=== PATIENT | female | born 1950 | race Caucasian/White ===

== ENCOUNTER 2018-05-22 09:57 | Emergency (ER) | payer OTHER ==
[~2018-05-22] VITALS: Ht 154.9 cm; Wt 53.5 kg
--- NOTE | ~2018-05-22 | EKG ---
[place], [place] ELECTROCARDIOGRAM REPORT NAME: SCOTTIE PICHARDO UNIT #: [id number] ROOM: DOCTOR: BG DRAFT REPORT BIRTHDATE: [birth year] [facility] Test Date: 2018-05-22 Test Time: 10:33:52 Pat Name: SCOTTIE PICHARDO Department: Room: Gender: F Radiological Technologist: Jaleesa Floyd : 1950 Requested By: LEIGHTON TODD Order Number: [id number] Reading MD: Ilya Quarles MD Measurements Intervals Mabel Rate: 65 P: 66 IN: 158 QRS: 44 QRSD: 98 T: 75 QT: 431 QTc: 449 Interpretive Statements Sinus rhythm Abnormal R-wave progression, early transition Left ventricular hypertrophy Probable inferior infarct, old Baseline wander in lead(s) III No previous ECG available for comparison Electronically Signed On 05-23-2018 10:59:44 PDT by Ilya Quarles MD CM:EKGRPT:ELECTROCARDIOGRAM REPORT [id number] LEIGHTON PEDERSON DRAFT REPORT LEIGHTON SCHAFER
[2018-05-22] MEDS ORDERED: LISINOPRIL20 MG PO (10:29)
[2018-05-22] MEDS ORDERED: BUSPIRONE HCL10 MG PO (10:33)
[2018-05-22] MEDS ORDERED: BISOPROLOL FM5 MG PO (10:33)
[2018-05-22 10:37] LABS: BASO # 0.1 10*3/uL (0.0-0.1); BASO % 0.5 % (0.0-1.0); EOS # 0.1 10*3/uL (0.0-0.4); EOS % 0.5 % (1.0-4.0); HEMATOCRIT 35.4 % (37.0-47.0); HEMOGLOBIN 11.6 g/dl (12.0-16.0); LYMPH # 1.1 10*3/uL (1.3-4.4); LYMPH % 8.9 % (27.0-41.0); MEAN CELL VOLUME 94.4 fl (81.0-99.0); MEAN CORPUSCULAR HGB 30.9 pg (27.0-31.0); MEAN CORPUSCULAR HGB CONC 32.8 g/dl (33.0-37.0); MEAN PLATELET VOLUME 8.3 fl (9.6-12.3); MONO # 0.8 10*3/uL (0.1-1.0); MONO % 6.7 % (3.0-9.0); NEUT # 10.1 10*3/uL (2.3-7.9); NEUT % 82.7 % (47.0-73.0); PLATELET COUNT AUTOMATED 451 10*3/uL (130-400); RED BLOOD COUNT 3.75 10*6/uL (4.10-5.10); WHITE BLOOD COUNT 12.2 10*3/uL (4.8-10.8)
[2018-05-22 10:55] LABS: ALKALINE PHOSPHATASE 107 U/L (45-117); BUN 13 mg/dl (7-24); CHLORIDE 102 mmol/L (98-107); CREATININE 0.57 mg/dL (0.55-1.02); POTASSIUM 4.5 mmol/L (3.5-5.1); SGOT/AST 18 IU/L (3-35); SGPT/ALT 27 U/L (12-78); SODIUM 137 mmol/L (136-145); TOTAL PROTEIN 6.7 gm/dL (6.4-8.2)
[2018-05-22] MEDS ORDERED: ASPIRIN CHEWABL81 MG PO (10:57)
[2018-05-22] MEDS ORDERED: HYDROCODONE-AC1 EAC1 PO (10:58)
[2018-05-22] MEDS ORDERED: CYMBALTA60 MG PO (10:59)
[2018-05-22] MEDS ORDERED: PAROXETINE20 MG PO (11:00)
[2018-05-22] MEDS ORDERED: GOOD NEIGHBOR650 MG PO (11:01)
[2018-05-22] MEDS ORDERED: APLISOL5 TUB UNIT IC (11:01)
[2018-05-22] MEDS ORDERED: CALCIUM + D3 E1 EACH PO (11:03)
[2018-05-22] MEDS ORDERED: ROPINIROLE HYDRO2 M2 PO (11:04)
[2018-05-22] MEDS ORDERED: DOCUSATE SODIU100 M2 PO (11:04)
[2018-05-22] MEDS ORDERED: TAB-A-VITE1 EACH PO (11:05)
[2018-05-22] MEDS ORDERED: PROSOURCE PLUS887 ML PO (11:06)
[2018-05-22] MEDS ORDERED: POTASSIUM CHLO20 ME3 PO (11:07)
[2018-05-22 11:50] LABS: BILIRUBIN NEGATIVE (NEGATIVE); BLOOD NEGATIVE (NEGATIVE); CLARITY CLEAR (CLEAR); COLOR YELLOW (YELLOW); GLUCOSE NEGATIVE (NEGATIVE); KETONE NEGATIVE (NEGATIVE); LEUKO ESTERASE NEGATIVE (NEGATIVE); NITRITE NEGATIVE (NEGATIVE); UROBILINOGEN 0.2 E.U./dl (0.2-1.0)
[2018-05-22 12:01] LABS: BACTERIA TRACE; MUCOUS TRACE
== END 2018-05-22 18:49 | disposition short-term general hospital (02) ==
LOC: ED 09:57
PROVIDERS: Physician Assistant
DX: T84.021A Dislocation of internal left hip prosthesis, initial encounter (principal); Z88.0 Allergy status to penicillin; Z88.8 Allergy status to other drugs, medicaments and biological substances; Z91.018 Allergy to other foods; Z96.642 Presence of left artificial hip joint; Z79.899 Other long term (current) drug therapy

== ENCOUNTER 2018-07-23 01:03 | Emergency (ER) | payer OTHER, MEDICAID ==
[~2018-07-23] VITALS: Ht 154.9 cm; Wt 54.4 kg
[~2018-07-23 01:03] MED LIST: APLISOL5 TUB UNIT IC; ASPIRIN CHEWABL81 MG PO; BISOPROLOL FM5 MG PO; BUSPIRONE HCL10 MG PO; CALCIUM + D3 E1 EACH PO; CYMBALTA60 MG PO; DOCUSATE SODIU100 M2 PO; GOOD NEIGHBOR650 MG PO; HYDROCODONE-AC1 EAC1 PO; LISINOPRIL20 MG PO; PAROXETINE20 MG PO; POTASSIUM CHLO20 ME3 PO; PROSOURCE PLUS887 ML PO; ROPINIROLE HYDRO2 M2 PO; TAB-A-VITE1 EACH PO
== END 2018-07-23 03:18 | disposition home or self-care (01) ==
LOC: ED 01:03
DX: R51 Headache (principal); M54.2 Cervicalgia; Z88.0 Allergy status to penicillin; Z91.018 Allergy to other foods; Z88.8 Allergy status to other drugs, medicaments and biological substances; Z79.899 Other long term (current) drug therapy; Z79.82 Long term (current) use of aspirin; W18.09XA Striking against other object with subsequent fall, initial encounter; Y93.89 Activity, other specified; Y92.129 Unspecified place in nursing home as the place of occurrence of the external cause; Y99.8 Other external cause status

== ENCOUNTER 2020-04-07 08:28 | Emergency (ER) | payer MEDICARE | END 2020-04-07 09:01 | disposition home or self-care (01) | LOC: ED 08:28 | DX: Z03.818 Encounter for observation for suspected exposure to other biological agents ruled out (principal); Z88.0 Allergy status to penicillin; Z88.8 Allergy status to other drugs, medicaments and biological substances; Z79.899 Other long term (current) drug therapy; Z79.82 Long term (current) use of aspirin ==

== ENCOUNTER 2020-07-26 00:05 | Emergency (ER) | payer MEDICARE ==
[~2020-07-26] VITALS: Ht 154.9 cm; Wt 58.1 kg
== END 2020-07-26 03:00 ==
LOC: ED 00:05
DX: S00.93XA Contusion of unspecified part of head, initial encounter (principal); F32.9 Major depressive disorder, single episode, unspecified; F41.9 Anxiety disorder, unspecified; I10 Essential (primary) hypertension; M19.90 Unspecified osteoarthritis, unspecified site; Z88.0 Allergy status to penicillin; Z88.5 Allergy status to narcotic agent; Z91.018 Allergy to other foods; Z88.8 Allergy status to other drugs, medicaments and biological substances; Z79.899 Other long term (current) drug therapy; Z79.82 Long term (current) use of aspirin; W19.XXXA Unspecified fall, initial encounter; Y93.89 Activity, other specified; Y92.89 Other specified places as the place of occurrence of the external cause; Y99.8 Other external cause status

== ENCOUNTER 2021-04-19 15:53 | Emergency (ER) | payer MEDICARE ==
[~2021-04-19] VITALS: Ht 154.9 cm; Wt 68.9 kg
== END 2021-04-19 18:07 ==
LOC: ED 15:53
DX: S01.01XA Laceration without foreign body of scalp, initial encounter (principal); Z79.899 Other long term (current) drug therapy; Z79.82 Long term (current) use of aspirin; Z88.0 Allergy status to penicillin; Z88.8 Allergy status to other drugs, medicaments and biological substances; W01.198A Fall on same level from slipping, tripping and stumbling with subsequent striking against other object, initial encounter; Y93.89 Activity, other specified; Y92.128 Other place in nursing home as the place of occurrence of the external cause; Y99.9 Unspecified external cause status

== ENCOUNTER 2021-08-05 05:31 | Emergency (ER) | payer MEDICARE ==
[~2021-08-05] VITALS: Ht 152.4 cm; Wt 49.9 kg
== END 2021-08-05 07:40 ==
LOC: ED 05:31
DX: S00.83XA Contusion of other part of head, initial encounter (principal); S80.212A Abrasion, left knee, initial encounter; Z88.0 Allergy status to penicillin; Z88.8 Allergy status to other drugs, medicaments and biological substances; Z79.899 Other long term (current) drug therapy; Z79.82 Long term (current) use of aspirin; W18.39XA Other fall on same level, initial encounter; Y93.89 Activity, other specified; Y92.89 Other specified places as the place of occurrence of the external cause; Y99.8 Other external cause status

== ENCOUNTER 2022-02-15 07:18 | Emergency (ER) | payer MEDICARE ==
[2022-02-15 07:43] LABS: BASO # 0.1 10*3/uL (0.0-0.1); BASO % 0.7 % (0.0-1.0); EOS # 0.2 10*3/uL (0.0-0.4); EOS % 2.1 % (1.0-4.0); HEMATOCRIT 42.4 % (37.0-47.0); LYMPH # 1.4 10*3/uL (1.3-4.4); LYMPH % 17.8 % (27.0-41.0); MEAN CELL VOLUME 91.8 fl (81.0-99.0); MEAN CORPUSCULAR HGB 29.9 pg (27.0-31.0); MEAN CORPUSCULAR HGB CONC 32.5 g/dl (33.0-37.0); MONO # 0.6 10*3/uL (0.1-1.0); MONO % 7.9 % (3.0-9.0); NEUT # 5.5 10*3/uL (2.3-7.9); NEUT % 70.8 % (47.0-73.0); PLATELET COUNT AUTOMATED 321 10*3/uL (130-400); RED BLOOD COUNT 4.62 10*6/uL (4.10-5.10); RED CELL DISTRI WIDTH 13.4 % (0-14.5); WHITE BLOOD COUNT 7.7 10*3/uL (4.8-10.8)
[2022-02-15 07:57] LABS: ACT PARTIAL THROMBO TIME 29.5 SECONDS (20.0-32.1)
[2022-02-15 07:58] LABS: BUN 22 mg/dl (7-24); CHLORIDE 107 mmol/L (98-107); CREATININE 0.57 mg/dL (0.55-1.02); POTASSIUM 4.7 mmol/L (3.5-5.1); SODIUM 138 mmol/L (136-145)
[2022-02-15 08:02] LABS: CPK 63 U/L (26-192)
== END 2022-02-15 09:30 | disposition home or self-care (01) ==
LOC: ED 07:18
PROVIDERS: Emergency Medicine
DX: S09.90XA Unspecified injury of head, initial encounter (principal); M25.552 Pain in left hip; M25.551 Pain in right hip; Z88.0 Allergy status to penicillin; Z88.8 Allergy status to other drugs, medicaments and biological substances; Z79.899 Other long term (current) drug therapy; Z79.82 Long term (current) use of aspirin; W18.39XA Other fall on same level, initial encounter; Y93.89 Activity, other specified; Y92.128 Other place in nursing home as the place of occurrence of the external cause; Y99.8 Other external cause status

== ENCOUNTER 2022-04-10 09:18 | Emergency (ER) | payer MEDICARE ==
[~2022-04-10] VITALS: Ht 154.9 cm; Wt 54.4 kg
[2022-04-10 10:32] LABS: BASO # 0.1 10*3/uL (0.0-0.1); BASO % 0.6 % (0.0-1.0); EOS # 0.2 10*3/uL (0.0-0.4); EOS % 1.9 % (1.0-4.0); HEMATOCRIT 40.5 % (37.0-47.0); LYMPH # 1.4 10*3/uL (1.3-4.4); LYMPH % 15.8 % (27.0-41.0); MEAN CORPUSCULAR HGB 30.7 pg (27.0-31.0); MEAN CORPUSCULAR HGB CONC 33.3 g/dl (33.0-37.0); MEAN PLATELET VOLUME 8.8 fl (9.6-12.3); MONO # 0.7 10*3/uL (0.1-1.0); MONO % 8.3 % (3.0-9.0); NEUT # 6.4 10*3/uL (2.3-7.9); NEUT % 73.1 % (47.0-73.0); PLATELET COUNT AUTOMATED 289 10*3/uL (130-400); RED CELL DISTRI WIDTH 13.1 % (0-14.5); WHITE BLOOD COUNT 8.7 10*3/uL (4.8-10.8)
[2022-04-10 10:47] LABS: ALKALINE PHOSPHATASE 72 U/L (45-117); BUN 20 mg/dl (7-24); CHLORIDE 106 mmol/L (98-107); CREATININE 0.55 mg/dL (0.55-1.02); POTASSIUM 4.6 mmol/L (3.5-5.1); SGOT/AST 17 IU/L (3-35); SGPT/ALT 26 U/L (12-78); SODIUM 137 mmol/L (136-145); TOTAL PROTEIN 6.4 gm/dL (6.4-8.2)
[2022-04-10 10:48] LABS: ACT PARTIAL THROMBO TIME 29.6 SECONDS (20.0-32.1)
== END 2022-04-10 13:01 ==
LOC: ED 09:18
PROVIDERS: Family Medicine
DX: S70.11XA Contusion of right thigh, initial encounter (principal); S00.03XA Contusion of scalp, initial encounter; Z88.0 Allergy status to penicillin; Z88.8 Allergy status to other drugs, medicaments and biological substances; Z91.018 Allergy to other foods; Z79.899 Other long term (current) drug therapy; Z79.82 Long term (current) use of aspirin; W18.39XA Other fall on same level, initial encounter; Y93.89 Activity, other specified; Y92.89 Other specified places as the place of occurrence of the external cause; Y99.8 Other external cause status

== ENCOUNTER → 2023-03-24 | Outpatient (CLI) | payer MEDICARE ==
[~2023-03-24] MED LIST changes: +APRESOLINE25 MG PO; +ASPERCREME LID113 G1 T; +FOSAMAX70 M1 PO; +NORVASC5 MG PO; +TENORMIN50 MG PO; +VOLTAREN ARTHRI20 GM T
== END | disposition home or self-care (01) ==
LOC: CARD 02:16
PROVIDERS: ATTEND Internal Medicine Cardiovascular Disease
DX: R94.39 Abnormal result of other cardiovascular function study (principal); I10 Essential (primary) hypertension; R00.2 Palpitations; I34.0 Nonrheumatic mitral (valve) insufficiency; R94.31 Abnormal electrocardiogram [ECG] [EKG]; R60.9 Edema, unspecified

== ENCOUNTER → 2024-02-21 | Outpatient (CLI) | payer MEDICARE ==
[~2024-02-21] MED LIST changes: +CIPRO500 MG PO
== END | disposition home or self-care (01) ==
LOC: ORTHO 01:59
PROVIDERS: ATTEND Orthopaedic Surgery
DX: M25.775 Osteophyte, left foot (principal)

== ENCOUNTER 2024-05-15 16:40 | Emergency (ER) | payer MEDICARE ==
[~2024-05-15] VITALS: Ht 144.7 cm; Wt 65.3 kg
[2024-05-15] MEDS ORDERED: Acetaminophen/Oxycodone 5 MG/325 MG TABLET PO ONE (16:50)
[2024-05-15 17:09] LABS: BASO # 0.1 10*3/uL (0.0-0.1); BASO % 0.4 % (0.0-1.0); EOS # 0.2 10*3/uL (0.0-0.4); EOS % 1.7 % (1.0-4.0); LYMPH # 2.2 10*3/uL (1.3-4.4); LYMPH % 18.7 % (27.0-41.0); MEAN CELL VOLUME 92.6 fl (81.0-99.0); MEAN CORPUSCULAR HGB CONC 32.4 g/dl (33.0-37.0); MEAN PLATELET VOLUME 8.5 fl (9.6-12.3); MONO # 1.1 10*3/uL (0.1-1.0); MONO % 9.9 % (3.0-9.0); PLATELET COUNT AUTOMATED 340 10*3/uL (130-400); RED BLOOD COUNT 4.86 10*6/uL (4.10-5.10); WHITE BLOOD COUNT 11.6 10*3/uL (4.8-10.8)
[2024-05-15 17:20] LABS: ACT PARTIAL THROMBO TIME 27.5 SECONDS (20.0-32.1)
[2024-05-15 17:28] LABS: BUN 19 mg/dl (9-23); CHLORIDE 105 mmol/L (98-107); POTASSIUM 3.6 mmol/L (3.4-5.1)
== END 2024-05-15 22:48 ==
LOC: ED 16:40
PROVIDERS: Internal Medicine
DX: R51.9 Headache, unspecified (principal); M25.552 Pain in left hip; M54.2 Cervicalgia; R10.2 Pelvic and perineal pain; F32.A Depression, unspecified; F41.9 Anxiety disorder, unspecified; I10 Essential (primary) hypertension; M19.90 Unspecified osteoarthritis, unspecified site; E78.5 Hyperlipidemia, unspecified; Z88.0 Allergy status to penicillin; Z88.8 Allergy status to other drugs, medicaments and biological substances; Z91.018 Allergy to other foods; Z90.49 Acquired absence of other specified parts of digestive tract; Z98.890 Other specified postprocedural states; W19.XXXA Unspecified fall, initial encounter